=== PATIENT | male | born 1950 | race Caucasian/White ===

== ENCOUNTER → 2017-08-07 | Outpatient (CLI) | payer MEDICARE, OTHER ==
[~2017-08-07] MED LIST: ALBU.083IS IH; ALBU90OI INH; ALBU90OI61 INH; ASPI325 PO; Aspir 8181 MG PO; BECL40OI INH; CARV6.25 PO; CLOP75 PO; CRUTCH2 USE; CRUTCH4 USE; EZET10-80 PO; FISH1000 PO; FURO40 PO; HYDACE5 PO; HYDACE5325 PO; IBUP600 PO; LISHYD1012 PO; LISI20 PO; LISI5 PO; MONT10T PO; Mucinex600 MG PO; N-ACETYL-L-CYS600 MG PO; NAPR500 PO; NITR.4SL SL; OXYGEN; POTCHL10ER PO; PRED20 PO; Prednisone20 MG PO; SULTRIDS PO; Ventolin Soln3 ML INH; XARELTO20 MG PO; Zithromax250 MG PO
[2017-08-07 18:23] LABS: BASOPHILS ABSOLUTE AUTO 0.03 K/mm3 (0.00-0.23); BASOPHILS PERCENT AUTO 0 % (0-2); EOSINOPHILS ABSOLUTE AUTO 0.48 K/mm3 (0.00-0.68); EOSINOPHILS PERCENT AUTO 7 % (0-6); Hematocrit 45.2 % (37.0-53.0); Hemoglobin 15.3 g/dL (13.5-17.5); IMMATURE GRAN ABSOLUTE AUTO 0.01 K/mm3 (0.00-0.10); IMMATURE GRAN PERCENT AUTO 0 % (0-1); LYMPHOCYTES PERCENT AUTO 30 % (21-46); MONOCYTES ABSOLUTE AUTO 0.68 K/mm3 (0.16-1.47); MONOCYTES PERCENT AUTO 10 % (4-13); Mean Corpuscular HGB Conc 33.8 g/dL (31.5-36.5); Mean Corpuscular Volume 86 fL (80-100); Mean Platelet Volume 10.5 fL (9.1-12.4); NEUTROPHILS PERCENT AUTO 52 % (41-73); Platelet Count 167 K/mm3 (150-400); RDW Standard Deviation 40.9 fL (35.1-46.3); Red Blood Cell Count 5.27 M/mm3 (4.30-5.90)
== END | disposition home or self-care (01) ==
LOC: LAB 09:49
PROVIDERS: Nurse Practitioner Adult Health
DX: I10 Essential (primary) hypertension (principal); R53.83 Other fatigue
CPT/HCPCS: 85025

== ENCOUNTER → 2018-01-20 | Outpatient (CLI) | payer MEDICARE ==
[2018-01-20 18:11] LABS: BASOPHILS ABSOLUTE AUTO 0.05 K/mm3 (0.00-0.23); BASOPHILS PERCENT AUTO 1 % (0-2); EOSINOPHILS ABSOLUTE AUTO 0.25 K/mm3 (0.00-0.68); EOSINOPHILS PERCENT AUTO 5 % (0-6); Hematocrit 47.6 % (37.0-53.0); Hemoglobin 15.3 g/dL (13.5-17.5); IMMATURE GRAN ABSOLUTE AUTO 0.01 K/mm3 (0.00-0.10); IMMATURE GRAN PERCENT AUTO 0 % (0-1); LYMPHOCYTES ABSOLUTE AUTO 1.54 K/mm3 (0.84-5.20); LYMPHOCYTES PERCENT AUTO 28 % (21-46); MONOCYTES PERCENT AUTO 15 % (4-13); Mean Corpuscular HGB 28.9 pg (26.0-34.0); Mean Corpuscular HGB Conc 32.1 g/dL (31.5-36.5); Mean Corpuscular Volume 90 fL (80-100); Mean Platelet Volume 10.6 fL (9.1-12.4); NEUTROPHILS ABSOLUTE AUTO 2.87 K/mm3 (1.96-9.15); NEUTROPHILS PERCENT AUTO 52 % (41-73); Platelet Count 174 K/mm3 (150-400); RDW Coefficient Variation 13.2 % (11.7-14.2); RDW Standard Deviation 43.5 fL (35.1-46.3); White Blood Cell Count 5.52 K/mm3 (4.00-11.30)
[2018-01-20 19:10] LABS: Alanine Aminotransfer (ALT/SGP 16 U/L (12-78); Albumin, Blood 3.5 g/dL (3.4-5.0); Albumin/Globulin Ratio 1.2 (0.8-1.8); Alk Phos 85 U/L (50-136); Anion Gap 7 mmol/L (6-16); Aspartate Aminotrans (AST/SGOT 14 U/L (12-37); Bilirubin, Total 0.7 mg/dL (0.1-1.0); Blood Urea Nitrogen 10 mg/dL (8-24); Bun/Creatinine Ratio 10.6 (12.0-20.0); CO2, Blood 31 mmol/L (21-32); Chloride, Blood 103 mmol/L (98-108); Creatinine, Blood 0.95 mg/dL (0.60-1.20); Glomerular Filtration Rate >60 (60-); Glucose, Blood 110 mg/dL (70-99); Potassium, Blood 4.7 mmol/L (3.5-5.5); Sodium, Blood 141 mmol/L (136-145); Total Protein, Blood 6.5 g/dL (6.4-8.2)
[2018-01-22 10:56] LABS: Cholesterol 127 mg/dL (50-200); HDL Cholesterol 42 mg/dL (>39); LDL/HDL RATIO 1.3; Low Density Lipoprotein Chol 55 mg/dL (0-110); Triglycerides 151 mg/dL (30-160); Very Low Density Lipoprot Chol 30 mg/dL (6-32)
== END | disposition home or self-care (01) ==
LOC: LAB 10:07 → LAB SHORT 10:07
PROVIDERS: Nurse Practitioner Adult Health
DX: I10 Essential (primary) hypertension (principal); E78.5 Hyperlipidemia, unspecified
CPT/HCPCS: 80053; 80061; 85025

== ENCOUNTER → 2018-01-27 | Outpatient (CLI) | payer MEDICARE | END | disposition home or self-care (01) | LOC: LAB 17:43 → LAB SHORT 17:43 | DX: I25.10 Atherosclerotic heart disease of native coronary artery without angina pectoris (principal); I51.9 Heart disease, unspecified; J20.9 Acute bronchitis, unspecified; J44.9 Chronic obstructive pulmonary disease, unspecified | CPT/HCPCS: 83880 ==

== ENCOUNTER → 2019-03-17 | Outpatient (CLI) | payer MEDICARE ==
[~2019-03-17] MED LIST changes: +ELIQUIS5 MG PO; +ENTRESTO 24 MG1 EACH PO; +FISH OIL PO; +METO25ER PO; +POTA10T PO
[2019-03-17 19:10] LABS: Alanine Aminotransfer (ALT/SGP 13 U/L (12-78); Albumin, Blood 3.6 g/dL (3.4-5.0); Albumin/Globulin Ratio 1.2 (0.8-1.8); Alk Phos 88 U/L (50-136); Anion Gap 2 mmol/L (6-16); Aspartate Aminotrans (AST/SGOT 19 U/L (12-37); Bilirubin, Total 0.7 mg/dL (0.1-1.0); Blood Urea Nitrogen 18 mg/dL (8-24); Bun/Creatinine Ratio 15.1 (12.0-20.0); CO2, Blood 33 mmol/L (21-32); Calcium, Blood 8.7 mg/dL (8.5-10.1); Chloride, Blood 106 mmol/L (98-108); Cholesterol 135 mg/dL (50-200); Creatinine, Blood 1.19 mg/dL (0.60-1.20); Globulin, Blood 2.9 g/dL (2.2-4.0); Glomerular Filtration Rate >60 (60-); Glucose, Blood 98 mg/dL (70-99); Sodium, Blood 141 mmol/L (136-145); Total Protein, Blood 6.5 g/dL (6.4-8.2); Triglycerides 145 mg/dL (30-160); Very Low Density Lipoprot Chol 29 mg/dL (6-32)
[2019-03-17 19:11] LABS: CHOL/HDL RATIO 2.8; HDL Cholesterol 48 mg/dL (>39); LDL/HDL RATIO 1.2; Low Density Lipoprotein Chol 58 mg/dL (0-110)
== END ==
LOC: LAB 18:12 → LAB SHORT 18:12
PROVIDERS: Internal Medicine
DX: Z11.59 Encounter for screening for other viral diseases (principal); I50.22 Chronic systolic (congestive) heart failure; E78.2 Mixed hyperlipidemia
CPT/HCPCS: 80053; 80061; 83880; 86803

== ENCOUNTER 2019-05-01 06:01 | Day surgery (SDC) | payer MEDICARE ==
--- NOTE | 2019-05-01 07:07 | NUR ---
Ambulatory in Day Surgery. History, Chart, Medications and Allergies reviewed before start of procedure. Lungs clear T/O to Auscultation. Patient confirms NPO status and agrees with scheduled surgery. Pre-Op teaching done. Pt verbalizes understanding. Patient States Post-Procedure ride home has been arranged.
--- NOTE | 2019-05-01 10:40 | NUR ---
PT ALERT AND ORIENTED, C/O BEING DROWSY, BIOX IS 90% ON RA. PT STATES THAT HE HAS COPD AND USES O2 AT HOME OCCASIONALLY, PT ALSO HAS A CPAP. PT ENCOURAGED TO TAKE DEEP BREATHS. PT PLACED ON 2L NC AT THIS TIME. PT INSTRUCTED TO US HIS O2 AT HOME FOR NEXT FEW DAYS UNTIL HER HE UP AND MOVING AROUND AND FEELS THAT HE DOESN'T NEED IT. SPOKE WITH FAMILY WELL TO HELP REMIND AND ENCOURAGE PT TO DEEP BREATH AND COUGH.
--- NOTE | 2019-05-01 11:06 | NUR ---
PT TOLERATING FLUIDS AND PUDDING WELL.
--- NOTE | 2019-05-01 11:55 | NUR ---
PT REPORTS THAT HIS BLOOD PRESSURE HAS BEEN RUNNING LOW FOR PAST FEW WEEKS. PT DENIES DIZZINESS WITH POSITION CHANGES OR STANDING. PT HAS TOLERATED PO FLUIDS, DENIES SOB AND DIZZINESS. PT ENCOURAGED TO MONITOR HIS BLOOD PRESSURE AT HOME AND KEEP A RECORD FOR HIS PROVIDER. PT AND VERBLIZED UNDERSTANDING. Discharge instructions reviewed with patient. Patient verbalizes understanding. Copy given to patient to take home. Dressing to procedure site clean, dry, intact with no visible drainage, swelling, erythema or bruising noted. Discharged via wheelchair to private car for ride home.
== END 2019-05-01 11:55 | disposition home or self-care (01) ==
LOC: ORSCMMR 06:01 → ORD 07:30 → ORSCMMR 07:30
PROVIDERS: Surgery
PROC: 8E0W4CZ Robotic Assisted Procedure of Trunk Region, Percutaneous Endoscopic Approach (ICD-10-PCS; principal; 2019-05-01 07:30)
PROC: 0YU64JZ Supplement Left Inguinal Region with Synthetic Substitute, Percutaneous Endoscopic Approach (ICD-10-PCS; principal; 2019-05-01 07:30)
PROC: 0WUF0JZ Supplement Abdominal Wall with Synthetic Substitute, Open Approach (ICD-10-PCS; principal; 2019-05-01 07:30)
DX: K40.90 Unilateral inguinal hernia, without obstruction or gangrene, not specified as recurrent (principal); K43.2 Incisional hernia without obstruction or gangrene; I10 Essential (primary) hypertension; I48.91 Unspecified atrial fibrillation; Z79.01 Long term (current) use of anticoagulants; I25.2 Old myocardial infarction; J44.9 Chronic obstructive pulmonary disease, unspecified; G47.33 Obstructive sleep apnea (adult) (pediatric); Z87.891 Personal history of nicotine dependence; Z79.899 Other long term (current) drug therapy; Z79.82 Long term (current) use of aspirin
CPT/HCPCS: 49650; 49560; 49568; S2900; A9270-GY; C1781; J0690; J1100; J1885; J2250; J2405; J2704; J2710; J3010; J7120

== ENCOUNTER → 2020-05-16 | Outpatient (CLI) | payer MEDICARE, OTHER ==
[2020-05-16 19:23] LABS: Albumin, Blood 3.6 g/dL (3.4-5.0); Anion Gap 9 mmol/L (6-16); Blood Urea Nitrogen 19 mg/dL (8-24); Bun/Creatinine Ratio 18.1 (12.0-20.0); CO2, Blood 24 mmol/L (21-32); Calcium, Blood 9.1 mg/dL (8.5-10.1); Chloride, Blood 110 mmol/L (98-108); Creatinine, Blood 1.05 mg/dL (0.60-1.20); Glomerular Filtration Rate >60 (60-); Glucose, Blood 137 mg/dL (70-99); Phosphorus, Blood 3.5 mg/dL (2.5-4.9); Potassium, Blood 4.1 mmol/L (3.5-5.5); Sodium, Blood 143 mmol/L (136-145)
== END | disposition home or self-care (01) ==
LOC: LAB SHORT 16:57 → LAB 16:57
PROVIDERS: Internal Medicine
DX: I50.22 Chronic systolic (congestive) heart failure (principal)
CPT/HCPCS: 80069; 83880

== ENCOUNTER → 2020-08-08 | Outpatient (CLI) | payer MEDICARE, OTHER ==
[2020-08-08 18:26] LABS: Albumin, Blood 3.9 g/dL (3.4-5.0); Anion Gap 7 mmol/L (6-16); Blood Urea Nitrogen 29 mg/dL (8-24); Bun/Creatinine Ratio 22.5 (12.0-20.0); CO2, Blood 26 mmol/L (21-32); Calcium, Blood 9.1 mg/dL (8.5-10.1); Chloride, Blood 107 mmol/L (98-108); Creatinine, Blood 1.29 mg/dL (0.60-1.20); Glomerular Filtration Rate 59 (60-); Glucose, Blood 116 mg/dL (70-99); Phosphorus, Blood 3.1 mg/dL (2.5-4.9); Potassium, Blood 4.6 mmol/L (3.5-5.5); Sodium, Blood 140 mmol/L (136-145)
== END ==
LOC: LAB SHORT 17:10 → LAB 17:10
PROVIDERS: Internal Medicine
DX: I50.22 Chronic systolic (congestive) heart failure (principal)
CPT/HCPCS: 80069; 83880

== ENCOUNTER → 2021-04-17 | Outpatient (CLI) | payer MEDICARE ==
[2021-04-17 18:40] LABS: BASOPHILS ABSOLUTE AUTO 0.08 K/mm3 (0.00-0.23); BASOPHILS PERCENT AUTO 1 % (0-2); EOSINOPHILS ABSOLUTE AUTO 0.42 K/mm3 (0.00-0.68); EOSINOPHILS PERCENT AUTO 5 % (0-6); Hematocrit 51.5 % (37.0-53.0); Hemoglobin 17.1 g/dL (13.5-17.5); IMMATURE GRAN ABSOLUTE AUTO 0.03 K/mm3 (0.00-0.10); IMMATURE GRAN PERCENT AUTO 0 % (0-1); LYMPHOCYTES ABSOLUTE AUTO 2.72 K/mm3 (0.84-5.20); LYMPHOCYTES PERCENT AUTO 31 % (21-46); MONOCYTES ABSOLUTE AUTO 0.79 K/mm3 (0.16-1.47); MONOCYTES PERCENT AUTO 9 % (4-13); Mean Corpuscular HGB 29.4 pg (26.0-34.0); Mean Corpuscular HGB Conc 33.2 g/dL (31.5-36.5); Mean Corpuscular Volume 89 fL (80-100); Mean Platelet Volume 10.5 fL (9.1-12.4); NEUTROPHILS ABSOLUTE AUTO 4.62 K/mm3 (1.96-9.15); NEUTROPHILS PERCENT AUTO 54 % (41-73); Platelet Count 220 K/mm3 (150-400); RDW Coefficient Variation 12.4 % (11.7-14.2); RDW Standard Deviation 40.4 fL (35.1-46.3); Red Blood Cell Count 5.82 M/mm3 (4.30-5.90); White Blood Cell Count 8.66 K/mm3 (4.00-11.30)
[2021-04-17 18:49] LABS: Bun/Creatinine Ratio 22.8 (12.0-20.0); Calcium, Blood 9.6 mg/dL (8.5-10.1); Creatinine, Blood 1.23 mg/dL (0.60-1.20); Potassium, Blood 4.9 mmol/L (3.5-5.5)
[2021-04-17 18:59] LABS: Alanine Aminotransfer (ALT/SGP 16 U/L (12-78); Albumin, Blood 3.9 g/dL (3.4-5.0); Albumin/Globulin Ratio 1.1 (0.8-1.8); Alk Phos 73 U/L (50-136); Anion Gap 3 mmol/L (6-16); Aspartate Aminotrans (AST/SGOT 18 U/L (12-37); Blood Urea Nitrogen 28 mg/dL (8-24); Bun/Creatinine Ratio 22.2 (12.0-20.0); CHOL/HDL RATIO 2.7; CO2, Blood 30 mmol/L (21-32); Calcium, Blood 9.7 mg/dL (8.5-10.1); Chloride, Blood 106 mmol/L (98-108); Cholesterol 152 mg/dL (50-200); Creatinine, Blood 1.26 mg/dL (0.60-1.20); Globulin, Blood 3.4 g/dL (2.2-4.0); Glomerular Filtration Rate 56 (60-); Glucose, Blood 103 mg/dL (70-99); HDL Cholesterol 56 mg/dL (>39); LDL/HDL RATIO 0.9; Low Density Lipoprotein Chol 52 mg/dL (0-110); Sodium, Blood 139 mmol/L (136-145); Total Protein, Blood 7.3 g/dL (6.4-8.2); Triglycerides 218 mg/dL (30-160); Very Low Density Lipoprot Chol 43 mg/dL (6-32)
== END | disposition home or self-care (01) ==
LOC: LAB SHORT 08:55
PROVIDERS: Internal Medicine
DX: I50.22 Chronic systolic (congestive) heart failure (principal); E78.2 Mixed hyperlipidemia
CPT/HCPCS: 80048; 80053; 80061; 85025

== ENCOUNTER → 2022-04-16 | Outpatient (CLI) | payer MEDICARE ==
[2022-04-16 19:25] LABS: Alanine Aminotransfer (ALT/SGP 14 U/L (12-78); Albumin, Blood 3.7 g/dL (3.4-5.0); Albumin/Globulin Ratio 1.5 (0.8-1.8); Alk Phos 54 U/L (50-136); Anion Gap 5 mmol/L (6-16); Aspartate Aminotrans (AST/SGOT 17 U/L (12-37); Bilirubin, Total 0.7 mg/dL (0.1-1.0); Blood Urea Nitrogen 35 mg/dL (8-24); Bun/Creatinine Ratio 21.5 (12.0-20.0); CHOL/HDL RATIO 2.1; CO2, Blood 29 mmol/L (21-32); Calcium, Blood 9.5 mg/dL (8.5-10.1); Chloride, Blood 105 mmol/L (98-108); Cholesterol 141 mg/dL (50-200); Creatinine, Blood 1.63 mg/dL (0.60-1.20); Globulin, Blood 2.4 g/dL (2.2-4.0); Glomerular Filtration Rate 45 (60-); Glucose, Blood 96 mg/dL (70-99); HDL Cholesterol 68 mg/dL (>39); LDL/HDL RATIO 0.8; Low Density Lipoprotein Chol 52 mg/dL (0-110); Potassium, Blood 4.5 mmol/L (3.5-5.5); Sodium, Blood 139 mmol/L (136-145); Total Protein, Blood 6.1 g/dL (6.4-8.2); Triglycerides 104 mg/dL (30-160); Very Low Density Lipoprot Chol 20 mg/dL (6-32)
== END ==
LOC: LAB SHORT 16:01
PROVIDERS: Family Medicine
DX: E78.2 Mixed hyperlipidemia (principal); I50.22 Chronic systolic (congestive) heart failure
CPT/HCPCS: 80053; 80061

== ENCOUNTER → 2022-12-06 | Outpatient (CLI) | payer MEDICARE ==
[2022-12-06 13:18] LABS: Bun/Creatinine Ratio 17.3 (12.0-20.0); Calcium, Blood 8.7 mg/dL (8.5-10.1); Creatinine, Blood 1.27 mg/dL (0.60-1.20); Potassium, Blood 4.4 mmol/L (3.5-5.5)
== END | disposition home or self-care (01) ==
LOC: LAB 11:04 → LAB SHORT 11:04
PROVIDERS: Family Medicine
DX: N18.30 Chronic kidney disease, stage 3 unspecified (principal); Z79.899 Other long term (current) drug therapy
CPT/HCPCS: 36415; 80048

== ENCOUNTER → 2023-03-27 | Outpatient (CLI) | payer MEDICARE ==
[2023-03-27 17:31] LABS: BASOPHILS ABSOLUTE AUTO 0.08 K/mm3 (0.00-0.23); BASOPHILS PERCENT AUTO 1 % (0-2); EOSINOPHILS ABSOLUTE AUTO 0.23 K/mm3 (0.00-0.68); EOSINOPHILS PERCENT AUTO 3 % (0-6); Hematocrit 49.8 % (37.0-53.0); Hemoglobin 16.4 g/dL (13.5-17.5); IMMATURE GRAN ABSOLUTE AUTO 0.02 K/mm3 (0.00-0.10); IMMATURE GRAN PERCENT AUTO 0 % (0-1); LYMPHOCYTES ABSOLUTE AUTO 2.66 K/mm3 (0.84-5.20); LYMPHOCYTES PERCENT AUTO 32 % (21-46); MONOCYTES ABSOLUTE AUTO 0.68 K/mm3 (0.16-1.47); MONOCYTES PERCENT AUTO 8 % (4-13); Mean Corpuscular HGB 29.8 pg (26.0-34.0); Mean Corpuscular HGB Conc 32.9 g/dL (31.5-36.5); Mean Corpuscular Volume 91 fL (80-100); Mean Platelet Volume 11.5 fL (9.1-12.4); NEUTROPHILS ABSOLUTE AUTO 4.57 K/mm3 (1.96-9.15); NEUTROPHILS PERCENT AUTO 55 % (41-73); Platelet Count 195 K/mm3 (150-400); RDW Coefficient Variation 12.7 % (11.7-14.2); RDW Standard Deviation 42.2 fL (35.1-46.3); White Blood Cell Count 8.24 K/mm3 (4.00-11.30)
[2023-03-27 17:36] LABS: Magnesium, Blood 2.3 mg/dL (1.6-2.4)
[2023-03-27 17:49] LABS: Alanine Aminotransfer (ALT/SGP 11 U/L (12-78); Albumin, Blood 3.6 g/dL (3.4-5.0); Albumin/Globulin Ratio 1.2 (0.8-1.8); Alk Phos 73 U/L (50-136); Anion Gap 4 mmol/L (6-16); Aspartate Aminotrans (AST/SGOT 12 U/L (12-37); Bilirubin, Total 0.7 mg/dL (0.1-1.0); Blood Urea Nitrogen 15 mg/dL (8-24); Bun/Creatinine Ratio 14.7 (12.0-20.0); CHOL/HDL RATIO 3.4; CO2, Blood 29 mmol/L (21-32); Chloride, Blood 108 mmol/L (98-108); Cholesterol 172 mg/dL (50-200); Creatinine, Blood 1.02 mg/dL (0.60-1.20); Globulin, Blood 3.1 g/dL (2.2-4.0); Glomerular Filtration Rate 78 (60-); Glucose, Blood 122 mg/dL (70-99); HDL Cholesterol 51 mg/dL (>39); LDL/HDL RATIO 1.6; Low Density Lipoprotein Chol 82 mg/dL (0-110); Potassium, Blood 4.3 mmol/L (3.5-5.5); Sodium, Blood 141 mmol/L (136-145); Total Protein, Blood 6.7 g/dL (6.4-8.2); Triglycerides 196 mg/dL (30-160); Very Low Density Lipoprot Chol 39 mg/dL (6-32)
== END | disposition home or self-care (01) ==
LOC: LAB SHORT 08:41 → LAB 08:41
PROVIDERS: Nurse Practitioner Family
DX: I48.20 Chronic atrial fibrillation, unspecified (principal); E78.2 Mixed hyperlipidemia
CPT/HCPCS: 80053; 80061; 83735; 85025

== ENCOUNTER 2023-05-25 21:52 | Inpatient (IN) | payer MEDICARE ==
[~2023-05-25] VITALS: Ht 182.9 cm; Wt 94.6 kg
[~2023-05-25 21:52] MED LIST changes: +GABA300 PO; +SPIR25 PO; +ZOCOR20 MG PO
[2023-05-25 22:30] LABS: BASOPHILS ABSOLUTE AUTO 0.05 K/mm3 (0.00-0.23); BASOPHILS PERCENT AUTO 1 % (0-2); EOSINOPHILS ABSOLUTE AUTO 0.17 K/mm3 (0.00-0.68); EOSINOPHILS PERCENT AUTO 2 % (0-6); Hematocrit 47.7 % (37.0-53.0); Hemoglobin 15.7 g/dL (13.5-17.5); IMMATURE GRAN ABSOLUTE AUTO 0.01 K/mm3 (0.00-0.10); IMMATURE GRAN PERCENT AUTO 0 % (0-1); LYMPHOCYTES ABSOLUTE AUTO 3.33 K/mm3 (0.84-5.20); LYMPHOCYTES PERCENT AUTO 37 % (21-46); MONOCYTES ABSOLUTE AUTO 1.06 K/mm3 (0.16-1.47); MONOCYTES PERCENT AUTO 12 % (4-13); Mean Corpuscular HGB 29.1 pg (26.0-34.0); Mean Corpuscular HGB Conc 32.9 g/dL (31.5-36.5); Mean Corpuscular Volume 89 fL (80-100); Mean Platelet Volume 12.3 fL (9.1-12.4); NEUTROPHILS ABSOLUTE AUTO 4.36 K/mm3 (1.96-9.15); NEUTROPHILS PERCENT AUTO 49 % (41-73); Platelet Count 158 K/mm3 (150-400); RDW Coefficient Variation 13.2 % (11.7-14.2); RDW Standard Deviation 43.3 fL (35.1-46.3); Red Blood Cell Count 5.39 M/mm3 (4.30-5.90); White Blood Cell Count 8.98 K/mm3 (4.00-11.30)
[2023-05-25 22:44] LABS: Bun/Creatinine Ratio 14.1 (12.0-20.0); Creatinine, Blood 1.35 mg/dL (0.60-1.20); Magnesium, Blood 2.4 mg/dL (1.6-2.4); Potassium, Blood 4.9 mmol/L (3.5-5.5)
[2023-05-26] VITALS (33 sets, daily range): BP systolic 84–129; BP diastolic 48–103
[2023-05-26 00:05] LABS: Calcium, Ionized (POC) 1.13 mmol/L (1.10-1.46); Chloride (POC) 102 mmol/L (98-108); Creatinine (POC) 1.5 mg/dL (0.8-1.3); Glucose (ISTAT POC) 75 mg/dL (70-99); Hemoglobin (POC) 16.3 g/dL (13.5-17.5); Potassium (POC) 4.9 mmol/L (3.5-5.5); Sodium (POC) 140 mmol/L (135-148); Total CO2 (POC) 29 mmol/L (21-32)
[2023-05-26 01:33] LABS: International Normalized Ratio 1.25
[2023-05-26 03:17] LABS: BASOPHILS ABSOLUTE AUTO 0.05 K/mm3 (0.00-0.23); BASOPHILS PERCENT AUTO 1 % (0-2); EOSINOPHILS ABSOLUTE AUTO 0.14 K/mm3 (0.00-0.68); EOSINOPHILS PERCENT AUTO 2 % (0-6); Hematocrit 44.3 % (37.0-53.0); Hemoglobin 14.3 g/dL (13.5-17.5); IMMATURE GRAN ABSOLUTE AUTO 0.01 K/mm3 (0.00-0.10); IMMATURE GRAN PERCENT AUTO 0 % (0-1); LYMPHOCYTES ABSOLUTE AUTO 2.19 K/mm3 (0.84-5.20); LYMPHOCYTES PERCENT AUTO 35 % (21-46); MONOCYTES ABSOLUTE AUTO 0.64 K/mm3 (0.16-1.47); MONOCYTES PERCENT AUTO 10 % (4-13); Mean Corpuscular HGB 28.9 pg (26.0-34.0); Mean Corpuscular HGB Conc 32.3 g/dL (31.5-36.5); Mean Corpuscular Volume 90 fL (80-100); Mean Platelet Volume 10.9 fL (9.1-12.4); NEUTROPHILS ABSOLUTE AUTO 3.24 K/mm3 (1.96-9.15); NEUTROPHILS PERCENT AUTO 52 % (41-73); Platelet Count 103 K/mm3 (150-400); RDW Coefficient Variation 13.2 % (11.7-14.2); RDW Standard Deviation 43.2 fL (35.1-46.3); Red Blood Cell Count 4.95 M/mm3 (4.30-5.90); White Blood Cell Count 6.27 K/mm3 (4.00-11.30)
[2023-05-26 03:35] LABS: Magnesium, Blood 2.2 mg/dL (1.6-2.4)
[2023-05-26 03:36] LABS: Bilirubin, Total 0.8 mg/dL (0.1-1.0); Calcium, Blood 8.1 mg/dL (8.5-10.1); Creatinine, Blood 1.21 mg/dL (0.60-1.20); Potassium, Blood 4.2 mmol/L (3.5-5.5)
--- NOTE | 2023-05-26 06:37 | NUR ---
PT ADMITTED TO ROOM ICU 14 FROM ED, ARRIVING AT 0232 THIS MORNING. PT ABLE TO PIVOT TRANSFER FROM [facility] TO BED. PT IN SINUS RHYTHM. DENIES CHEST PAIN OR PRESSURE. HAS COUGH THAT HE RELATES TO POST NASAL DRIP. PT STARTED ON HEPARIN DRIP PER PHARMACY RATE. PT GOOD HISTORIAN, AND OPEN TO TEACHING OF CARDIOVERSION, CURRENT HEALTH STATUS, DID PLACE O2 PER NASAL CANNULA FOR WHEN PT SLEEPING. PT STATES HE USES OXYGEN AT HOME AT [facility]. WILL CONTINUE TO MONITOR PT, AND WILL REPORT OFF TO ONCOMING RN.
--- NOTE | 2023-05-26 10:56 | NUR ---
CARE ASSUMPTION DURING BEDSIDE SHIFT REPORT W RAVI BREWER THE PT IS SLEEPING COMFORTABLY IN BED. PT WEARING 2L NC W SPO2 >92% ON THE MONITOR. PT'S MONITOR SHOWING SR 70'S W PAC'S AND OCCASIONAL PVC. BP WNL AND STABLE. PT HAS HEPARIN GTT INFUSING AT ORDERED RATE, CONFIRMED AT BEDSIDE W ANTHONY RN.
--- NOTE | 2023-05-26 13:23 | NUR ---
UPDATE WHILE THE PT WAS SITTING RELAXED IN THE RECLINER HIS MONITOR SHOWED AFIB 130-138. PT ASYMPTOMATIC AND BP WNL. PROVIDER NOTIFIED AND NEW ORDERS PENDING. RIGHT AFTER THIS RN NOTIFIED DR. NUNEZ THE PT'S HR DROPPED BACK DOWN 80'S-90'S. DR. NUNEZ UPDATED AND PROVIDER STATING TO CONTINUE TO MONITOR THE PT BUT THAT WE WILL STILL POSSIBLY DISCHARGE HIM THIS AFTERNOON.
[2023-05-26] MEDS ORDERED: Toprol Xl50 MG PO (15:04)
--- NOTE | 2023-05-26 16:03 | NUR ---
DISCHARGE PT DISCHARGED FROM ICU 14 TO HOME APPROX 1600. PT'S VITAL SIGNS STABLE AT TIME OF DISCHARGE. PT'S SPO2 >92% ON RM AIR. PT DENYING ANY PAIN OR NAUSEA. PT'S IV'S WERE DC'D AND THE PT WAS ABLE TO GET DRESSED INDEPENDENTLY. PT GIVEN DISCHARGE INSTRUCTIONS AND DISCUSSED THEM WITH THIS RN INCLUDING HIS NEW METOPROLOL PRESCRIPTION AND THE DOCTORS ORDER TO TAKE 100MG OF HIS METOPROLOL TOMMORROW PRIOR TO HIS ANGIOGRAM. PT TAKEN OUT VIA W/C AND WAS ABLE TO TRANSFER SELF TO HIS DAUGHTERS VEHICLE UNASSISTED.
[2023-05-27] MEDS ORDERED: CLOP75 PO (15:35)
== END 2023-05-26 16:00 | disposition home or self-care (01) | DRG 309 ==
LOC: ER 21:52 → ICUE 05-26 01:29
PROVIDERS: Student in an Organized Health Care Education/Training Program; ADMIT Student in an Organized Health Care Education/Training Program
PROC: 5A2204Z Restoration of Cardiac Rhythm, Single (ICD-10-PCS; principal; 2023-05-26)
DX: I47.20 Ventricular tachycardia, unspecified (principal); I50.22 Chronic systolic (congestive) heart failure; J44.9 Chronic obstructive pulmonary disease, unspecified; I25.10 Atherosclerotic heart disease of native coronary artery without angina pectoris; I95.9 Hypotension, unspecified; I48.20 Chronic atrial fibrillation, unspecified; I49.3 Ventricular premature depolarization; I48.92 Unspecified atrial flutter; I25.2 Old myocardial infarction; Z88.8 Allergy status to other drugs, medicaments and biological substances; Z95.5 Presence of coronary angioplasty implant and graft; Z95.1 Presence of aortocoronary bypass graft; Z87.891 Personal history of nicotine dependence; Z95.0 Presence of cardiac pacemaker; Z79.82 Long term (current) use of aspirin; Z79.01 Long term (current) use of anticoagulants
CPT/HCPCS: 71045; 80047; 80048; 80053; 82947; 83735; 83880; 84484; 85014; 85025; 85610; 85730; 92960; 93005; 93010; 96360-59; 96361-59; 99285-25; A9270; G0008; J0282; J1644; J2405; J7030; Q2036

== ENCOUNTER 2023-05-27 09:12 | Day surgery (SDC) | payer MEDICARE ==
[2023-05-27] VITALS (15 sets, daily range): BP systolic 89–141; BP diastolic 72–102
[~2023-05-27] VITALS: Ht 182.9 cm; Wt 101.6 kg
[~2023-05-27 09:12] MED LIST changes: +Toprol Xl50 MG PO
--- NOTE | 2023-05-27 14:22 | NUR ---
1405 SJ RETURNED FROM THE [facility] VIA RECLINER, TR BAND TO THE RIGHT RADIAL WITH 16 ML OF AIR IN THE BAND. PATIENT PLACE ON THE MONITOR AND SBAR RECEIVED FROM DANIELLA MELENDEZ. AND IQRA RTR. PATIENT AWAKE, DRINKING COFFEE, CALL LIGHT IN REACH, NO PAIN NOTED. NO BLEEDING FROM THE RIGHT RADIAL.
--- NOTE | 2023-05-27 14:41 | NUR ---
PT AMBULATED TO RESTROOM. PT NOW BACK IN CHAIR. REPEAT V/S. FAMILY AT BEDSIDE.
--- NOTE | 2023-05-27 15:22 | NUR ---
2cc REMOVED FROM TR BAND. NO BLEEDING NOTED. SITE SOFT AND NON-TENDER PER PT.
--- NOTE | 2023-05-27 15:32 | NUR ---
CONTINUED TO RELEASE AIR FROM THE TR BAND. NO BLEEDING NOTED. FAMILY AT THE BEDSIDE.
[2023-05-27] MEDS ORDERED: CLOP75 PO (15:35)
--- NOTE | 2023-05-27 16:12 | NUR ---
[place] DISCHARGED HOME WITH FAMILY DRYING MACHINE TENDER. TR BAND REMOVED AND CLOTH DOT IN PLACE. DISCHARGE INSTRUCTIONS REVIEWED AND FOLLOW UP APPOINTMENT WILL BE CALLED TO THE PATIENT FROM THE OFFICE.
== END 2023-05-27 15:41 | disposition home or self-care (01) ==
LOC: MHTC 09:12
DX: I25.118 Atherosclerotic heart disease of native coronary artery with other forms of angina pectoris (principal); Q20.8 Other congenital malformations of cardiac chambers and connections; J44.9 Chronic obstructive pulmonary disease, unspecified; I10 Essential (primary) hypertension; E78.5 Hyperlipidemia, unspecified; G47.33 Obstructive sleep apnea (adult) (pediatric); Z95.0 Presence of cardiac pacemaker; Z95.1 Presence of aortocoronary bypass graft
CPT/HCPCS: 76937; 85347; 93455; 99152; 99153; A9270; C1725; C1769; C1874; C1887; C1894; C9600; J1644; J2250; J3010; J3246; J7030; J7050; Q9967

== ENCOUNTER 2023-08-01 06:23 | Inpatient (IN) | payer MEDICARE ==
[~2023-08-01] VITALS: Ht 182.9 cm; Wt 94.5 kg
[~2023-08-01 06:23] MED LIST changes: +ALBU2.5V5 INH; +METO50ER PO; -Toprol Xl50 MG PO
[2023-08-01 06:51] LABS: BASOPHILS ABSOLUTE AUTO 0.07 K/mm3 (0.00-0.23); BASOPHILS PERCENT AUTO 1 % (0-2); EOSINOPHILS ABSOLUTE AUTO 0.19 K/mm3 (0.00-0.68); EOSINOPHILS PERCENT AUTO 2 % (0-6); Hematocrit 45.2 % (37.0-53.0); Hemoglobin 14.9 g/dL (13.5-17.5); IMMATURE GRAN ABSOLUTE AUTO 0.02 K/mm3 (0.00-0.10); IMMATURE GRAN PERCENT AUTO 0 % (0-1); LYMPHOCYTES ABSOLUTE AUTO 2.45 K/mm3 (0.84-5.20); LYMPHOCYTES PERCENT AUTO 27 % (21-46); MONOCYTES PERCENT AUTO 8 % (4-13); Mean Corpuscular HGB 29.3 pg (26.0-34.0); Mean Corpuscular Volume 89 fL (80-100); Mean Platelet Volume 11.6 fL (9.1-12.4); NEUTROPHILS ABSOLUTE AUTO 5.71 K/mm3 (1.96-9.15); NEUTROPHILS PERCENT AUTO 62 % (41-73); Platelet Count 157 K/mm3 (150-400); RDW Coefficient Variation 13.9 % (11.7-14.2); Red Blood Cell Count 5.09 M/mm3 (4.30-5.90); White Blood Cell Count 9.14 K/mm3 (4.00-11.30)
[2023-08-01 07:23] LABS: Albumin, Blood 3.4 g/dL (3.4-5.0); Bilirubin, Total 0.6 mg/dL (0.1-1.0); Bun/Creatinine Ratio 22.8 (12.0-20.0); Calcium, Blood 9.4 mg/dL (8.5-10.1); Creatinine, Blood 1.14 mg/dL (0.60-1.20); Globulin, Blood 3.4 g/dL (2.2-4.0); Potassium, Blood 4.5 mmol/L (3.5-5.5); Total Protein, Blood 6.8 g/dL (6.4-8.2)
[2023-08-01 12:03] VITALS: BP 116/92
[2023-08-01] MEDS ORDERED: Norco 5-325 Ta1 EACH PO ×2 (12:18)
[2023-08-01 13:36] VITALS: BP 103/80
--- NOTE | 2023-08-01 15:12 | NUR ---
PT ARRIVED TO PCU AT 1109. PT ON RA AT TIME OF ARRIVAL. PT EXPRESSED CHEST PRESSURE AT TIME OF ARRIVAL. PT ABLE TO TRANSFER SELF TO AND FROM HIS BED INDEPENDENTLY, TOLERATED WELL. 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 THIS SAT AT SIDE OF BED AND THERAPEUTICALLY LISTENED. PT A/OX4 AT TIME OF ARRIVAL AND ABLE TO EXPRESS NEEDS. PT ORIENTED TO ROOM AND CALL LIGHT.
[2023-08-01 16:15] VITALS: BP 119/80
--- NOTE | 2023-08-01 17:32 | NUR ---
REPORT RECIEVED FROM ER NURSE AT 1053.
--- NOTE | 2023-08-01 17:57 | NUR ---
SHIFT SUMMARY PT A/O X4 AND COOPERATIVE OF CARE. PT ABLE TO EXPRESS NEEDS AND CALLS APPROPIATLEY. PT HR REMAINED IN AFLUTTER AT 130-140'S WITH VERY BRIEF PERIOD OF 120. PT BP'S AND SATS STABLE IN THE 90'S ON RA. PT REPORTS CHEST PRESSURE SINCE ARRIVAL TO UNIT. NITRO TABS GIVEN PER PRDER, LITTLE RELIEF. MORPHINE ORDERED ONCE, PT REPORTED SLIGHT RELIEF. LOPRESSOR AND DIGOXIN GIVEN PER ORDER, HR REMAINED 130-140'S. PT REPORTS DYSPNEA RELATED TO CHEST PRESSURE. NITRO PATCH ORDEED AND APPLIED. PT INDEPENDENT IN ROOM. PT ARRIVED TO UNIT WITH AMIO GTT RUNNING, AMIO STOPPED AT 1459 PER ORDER.
[2023-08-01 20:13] VITALS: BP 106/79
--- NOTE | 2023-08-01 21:25 | NUR ---
ASSUMPTION OF CARE THIS RN ASSUMED CARE OF PT AT APPROX 1915. DURING BEDSIDE SHIFT REPORT, PT NOTED THAT HIS CHEST PAIN/PRESSURE REMAINED MODERATE-SEVERE. DAY SHIFT RN STATED THAT NITRO ADMINISTERED EARLIER IN THE DAY WAS NOT EFFECTIVE IN REDUCING CHEST PAIN. HR REMAINS 130-150'S AT START OF SHIFT, BP STABLE. CALL PLACED TO [facility] RESIDENT REGARDING PT'S CONTINUED CHEST PAIN & AFLUTTER ON TELE THAT REPORTEDLY HAS NOT RESPONDED TO AMIO GTT OR IV LOPRESSOR PUSHES. RESIDENT PHYSICIAN TO BEDSIDE TO EVALUATE PT. ORDERS RECEIVED TO ADMINISTER MORPHINE FOR PAIN RELIEF PER EMAR & START 100MG PO METOPROLOL PER EMAR THIS PM FOR RATE CONTROL. PT REPORTS REDUCTION IN CHEST PAIN FROM 9/10 TO 4/10 FOLLOWING ADMINISTRATION OF 2MG MORPHINE. PT STATES THAT HE FEELS LIKE HE MAY BE ABLE TO SLEEP AT THIS TIME, CALL LIGHT WITHIN REACH.
[2023-08-01 23:58] VITALS: BP 96/71
[2023-08-02] VITALS (16 sets, daily range): BP systolic 81–110; BP diastolic 56–77
[2023-08-02 04:35] LABS: Bun/Creatinine Ratio 24.3 (12.0-20.0); Calcium, Blood 8.9 mg/dL (8.5-10.1); Creatinine, Blood 1.11 mg/dL (0.60-1.20); Potassium, Blood 4.2 mmol/L (3.5-5.5)
--- NOTE | 2023-08-02 04:50 | NUR ---
END OF SHIFT NOTE: PT REMAINS PLEASANT & COOPERATIVE W/ ALL CARE. ALERT, ORIENTED X4. ABLE TO CALL APPROPRIATELY AND COMMUNICATE NEEDS W/ STAFF. HR 140'S, UP TO 150'S AT TIMES, AFLUTTER ON TELE. SEE PREVIOUS NOTE REGARDING MD AT BEDSIDE. PM DIGOXIN AND METOPROLOL ADMINISTERED PER EMAR W/O HR CHANGE. NITRO PATCH REMAINS IN PLACE. IV LOPRESSOR ON HOLD D/T SBP <100 THIS AM. SBP 90-110'S, MAP >65. PT ENDORSES SEVERE CHEST PAIN/PRESSURE THAT RADIATES TO NECK AND BACK; MODERATE RELIEF W/ MORPHINE PER EMAR. SPO2 >92% ON RA, CPAP WHILE SLEEPING. PT INDEPENDENT IN ROOM, TOLERATING PO INTAKE WELL. NO OTHER NEEDS AT THIS TIME. PT IS RESTING IN BED W/ CALL LIGHT IN REACH. WILL REPORT TO ONCOMING RN.
--- NOTE | 2023-08-02 07:40 | NUR ---
PT REPORTING 9/10 CRUSHING CHEST PAIN RADIATING TO THE JAW AND RIGHT ARM, AND HE STATED HE FEELS "LIKE MY HEART IS GOING TO GIVE OUT". I GAVE HIM MORPHINE FOR PAIN AND PLACED HIM ON 2L NC FOR PAIN. HE HAS BEEN NPO SINCE 0000. DR. ODONNELL CALLED AND STATED TO HOLD THE ENTRESTO, LASIX, AND SPIRALACLONE D/T SOFT BP. HE STATED TO GIVE THE PLAVIX, ELIQUIS, AND BETA BLOCKERS. HE WILL CALL CARDIOLOGY. SEE NOTES FOR UPDATES.
--- NOTE | 2023-08-02 09:39 | NUR ---
CARDIOVERSION: Dr. Ty came to room with HC nurses. Cardioverted Pt through the Pacer/ICD. Pt tolerated well. VS improved post cardioversion. Amioderone gtt running per orders. Pt now sitting up at edge of bed eating breakfast. Stable at this time, call light in reach.
--- NOTE | 2023-08-02 13:05 | NUR ---
MORNING SUMMARY PT IS A&OX4, SBA FOR LINE MANAGEMENT, AND HE CALLS APPROPRIATELY FOR HIS NEEDS. THE PT HAD A CARDIOVERSION W/ DR. SAENZ THIS MORNING, SEE CHARGE NURSE ANTIHA'S NOTE FOR DETAILS. THE PT WAS RESTARTED ON HIS DIURETICS AND METOPROLOL 100MG POST CARDIOVERSION. HIS BP IS SOFT, BUT DR. ODONNELL SAID TO CALL HIM IF THE MAP IS <65. PT IS STILL ON AN AMIO GTT AT THIS TIME. HE NOW DENYING ANY ANIGNA/CHEST PRESSURE, LIGHT HEADEDNESS, OR DIZZINESS. HE HAS BEEN ON RA W/ SP02 >93% AND THE PT DENIES ANY SOB. SEE NOTES FOR ANY UPDATES. FIRE IGNITION RISK HAS BEEN ASSESSED.
--- NOTE | 2023-08-02 14:15 | NUR ---
ASSUMED CARE OF PT PT IN BED ALERT, DR. ODONNELL IN ROOM AT THIS TIME, NO NEW ORDERS BUT STATES PROBABLE DC HOME TOMORROW. PT DENIES ANY COMPLAINTS. HR 77 AV PACED WITH INTERM PVC'S. BP SOFT BUT ASYMPTOMATIC. CURRENTLY RUNNING AMIO 33.3ML/HR. PT IS INDEPENDENT IN ROOM, EDUCATED ON FALL PRECAUTIONS. WILL CONT' TO MONITOR FOR REMAINDER OF SHIFT.
--- NOTE | 2023-08-02 17:14 | NUR ---
SUMMARY PT WAS CARDOVERTED THIS AM USING ICD, RATE HAS BEEN STABLE IN THE 70'S. AMIO GTT INFUSING AT MAINTENANCE RATE OF 16.7ML/HR. HAS BEEN HYPOTENSIVE T/O DAY BUT HAS IMPROVED THIS EVENING. PT HAS DENIED ANY COMPLAINTS. HOPEFUL ABOUT DC HOME TOMORROW.
--- NOTE | 2023-08-02 22:19 | NUR ---
ASSUMED CARE: THIS RN ASSUMED CARE OF PT AT APPROX 1900. PT ALERT/ORIENTED X4, SITTING UP ON EDGE OF BED CONVERSING W/ STAFF. HR 70-80'S, APACED ON TELE. SBP 90'S, MAP >65. PT DENIES CHEST PAIN/PRESSURE, STATES THIS RESOLVED FOLLOWING CARDIOVERSION. SPO2 >95% ON RA, RT TO BEDSIDE THIS PM TO PLACE CPAP FOR NOC. AMIO GTT INFUSING PER EMAR. PT REMAINS INDEPENDENT IN ROOM, EDUCATED ON FALL PREVENTION. NO OTHER NEEDS AT THIS TIME. CALL LIGHT WITHIN REACH, BED IN LOWEST POSITION.
[2023-08-03 03:46] VITALS: BP 96/63
--- NOTE | 2023-08-03 05:17 | NUR ---
END OF SHIFT NOTE: PT REMAINS PLEASANT & COOPERATIVE W/ ALL CARE. ALERT, ORIENTED X4. ABLE TO CALL APPROPRIATELY AND COMMUNICATE NEEDS W/ STAFF. HR 70-80'S, APACED ON TELE. SBP 90-110'S, MAP >65. PT CONTINUES TO DENY CHEST PAIN/PRESSURE. SPO2 >88% ON RA, CPAP WHILE SLEEPING W/ 3L O2 BLEED IN. AFEBRILE. PT INDEPENDENT IN ROOM, TOLERATING PO INTAKE WELL. VOIDS INDEPENDENTLY. NO OTHER NEEDS AT THIS TIME. PT IS RESTING IN BED W/ CALL LIGHT IN REACH. WILL REPORT TO ONCOMING RN.
[2023-08-03 07:49] VITALS: BP 102/69
[2023-08-03] MEDS ORDERED: Amiodarone HCl200 MG PO ×2 (09:03)
--- NOTE | 2023-08-03 09:35 | NUR ---
UPDATE PT ALERT AND ORIENTED. VS STABLE. HR A PACED 70'S. PT DENIES ANY PAIN. ORDERS FOR DISCHARGE THIS AM. PT PROVIDED INSTRUCTIONS AND EDUCATED ON NEW MEDICATIONS. ALL QUESTIONS ANSWERED. PT TAKEN OUT BY WC
== END 2023-08-03 09:31 | disposition home or self-care (01) | DRG 309 ==
LOC: ER 06:23 → PCU 06:24 → ER 11:15 → EDBEDREQ 11:45 → PCU 12:08
PROVIDERS: Emergency Medicine; ADMIT Internal Medicine
PROC: 5A2204Z Restoration of Cardiac Rhythm, Single (ICD-10-PCS; principal; 2023-08-02)
DX: I48.0 Paroxysmal atrial fibrillation (principal); I50.22 Chronic systolic (congestive) heart failure; N17.9 Acute kidney failure, unspecified; I48.92 Unspecified atrial flutter; J44.9 Chronic obstructive pulmonary disease, unspecified; I11.0 Hypertensive heart disease with heart failure; I25.10 Atherosclerotic heart disease of native coronary artery without angina pectoris; F10.90 Alcohol use, unspecified, uncomplicated; I77.810 Thoracic aortic ectasia; I45.10 Unspecified right bundle-branch block; I34.0 Nonrheumatic mitral (valve) insufficiency; Z95.1 Presence of aortocoronary bypass graft; Z98.890 Other specified postprocedural states; Z87.891 Personal history of nicotine dependence; Z88.8 Allergy status to other drugs, medicaments and biological substances; Z79.01 Long term (current) use of anticoagulants; Z79.82 Long term (current) use of aspirin; Z79.02 Long term (current) use of antithrombotics/antiplatelets; Z95.5 Presence of coronary angioplasty implant and graft; I25.2 Old myocardial infarction; Z79.891 Long term (current) use of opiate analgesic; Z79.899 Other long term (current) drug therapy
CPT/HCPCS: 36415; 71045; 80048; 80053; 83880; 84443; 84484; 85025; 93005; 93010; 93283; 94660; 94762; 96365; 96366; 96375; 96376; 99285-25; A9270; G0378; J0282; J1160; J2270; J7060

== ENCOUNTER 2023-08-06 07:42 | Day surgery (SDC) | payer MEDICARE ==
[~2023-08-06] VITALS: Ht 182.9 cm; Wt 93.7 kg
[~2023-08-06 07:42] MED LIST changes: +Amiodarone HCl200 MG PO; +Norco 5-325 Ta1 EACH PO
[2023-08-06] MEDS ORDERED: Amiodarone HCl200 MG (08:11)
--- NOTE | 2023-08-06 08:23 | NUR ---
08/06/23 0830 Heike Seth 0809 PLEDGET AT 0811
[2023-08-06 09:13] VITALS: BP 126/80
--- NOTE | 2023-08-06 09:33 | NUR ---
08/06/23 0977 REINIER FAN WHEEZING NOTED UPPER RIGHT AND SOMEWHAT LOWER RIGHT. PT HAS COPD. STATES THAT HE DOES HAVE INHALER AT HOME WHICH HE STATES HE WILL USE. VERY PLEASANT GENTLEMAN.
== END 2023-08-06 09:27 | disposition home or self-care (01) ==
LOC: ORSCSDS 07:42
PROVIDERS: Student in an Organized Health Care Education/Training Program
PROC: 08RJ3JZ Replacement of Right Lens with Synthetic Substitute, Percutaneous Approach (ICD-10-PCS; principal; 2023-08-06 09:00)
DX: H25.13 Age-related nuclear cataract, bilateral (principal); H21.81 Floppy iris syndrome; I10 Essential (primary) hypertension; I48.0 Paroxysmal atrial fibrillation; G47.33 Obstructive sleep apnea (adult) (pediatric); J44.9 Chronic obstructive pulmonary disease, unspecified; E78.5 Hyperlipidemia, unspecified; I25.10 Atherosclerotic heart disease of native coronary artery without angina pectoris; Z87.891 Personal history of nicotine dependence; Z79.01 Long term (current) use of anticoagulants; Z79.82 Long term (current) use of aspirin; Z79.02 Long term (current) use of antithrombotics/antiplatelets; Z79.899 Other long term (current) drug therapy
CPT/HCPCS: J3010; J7040; V2632

== ENCOUNTER 2023-08-27 06:13 | Day surgery (SDC) | payer MEDICARE ==
[~2023-08-27] VITALS: Ht 182.9 cm; Wt 94.5 kg
[~2023-08-27 06:13] MED LIST changes: +Amiodarone HCl200 MG
--- NOTE | 2023-08-27 06:35 | NUR ---
08/27/23 0635 Heike Seth AT 0633 PLESOLISET AT 0647
[2023-08-27 07:55] VITALS: BP 108/76
== END 2023-08-27 08:06 | disposition home or self-care (01) ==
LOC: ORSCSDS 06:13
PROVIDERS: Student in an Organized Health Care Education/Training Program
PROC: 08RK3JZ Replacement of Left Lens with Synthetic Substitute, Percutaneous Approach (ICD-10-PCS; principal; 2023-08-27 07:30)
DX: H25.12 Age-related nuclear cataract, left eye (principal); Z96.1 Presence of intraocular lens; Z79.02 Long term (current) use of antithrombotics/antiplatelets; G47.33 Obstructive sleep apnea (adult) (pediatric); J44.9 Chronic obstructive pulmonary disease, unspecified; I25.10 Atherosclerotic heart disease of native coronary artery without angina pectoris; E78.5 Hyperlipidemia, unspecified; I10 Essential (primary) hypertension; I48.91 Unspecified atrial fibrillation; I25.5 Ischemic cardiomyopathy; I48.0 Paroxysmal atrial fibrillation; Z95.1 Presence of aortocoronary bypass graft; Z87.891 Personal history of nicotine dependence; Z79.82 Long term (current) use of aspirin; Z79.01 Long term (current) use of anticoagulants; Z79.899 Other long term (current) drug therapy
CPT/HCPCS: J2250; J3010; J7030; J7040; V2632

== ENCOUNTER 2024-02-07 08:14 | Inpatient (IN) | payer MEDICARE ==
[~2024-02-07] VITALS: Ht 182.9 cm; Wt 96.0 kg
[2024-02-07] VITALS (14 sets, daily range): BP systolic 91–127; BP diastolic 71–115
[2024-02-07] MEDS ORDERED: Magnesium Sulf 2 GM/Water 50ML 50 ML IV ONE (08:35)
[2024-02-07] MEDS ORDERED: Metoprolol Tartrate 1 MG/ML 5 ML VIAL IV ONE (08:35)
[2024-02-07] MEDS ORDERED: MethylPREDNISolone Sod Succ 125 MG Vial IV ONE (08:35)
[2024-02-07 09:00] LABS: BASOPHILS PERCENT AUTO 1 % (0-2); EOSINOPHILS ABSOLUTE AUTO 0.32 K/mm3 (0.00-0.68); EOSINOPHILS PERCENT AUTO 3 % (0-6); Hematocrit 47.8 % (37.0-53.0); Hemoglobin 15.5 g/dL (13.5-17.5); IMMATURE GRAN ABSOLUTE AUTO 0.04 K/mm3 (0.00-0.10); IMMATURE GRAN PERCENT AUTO 0 % (0-1); LYMPHOCYTES ABSOLUTE AUTO 3.36 K/mm3 (0.84-5.20); LYMPHOCYTES PERCENT AUTO 28 % (21-46); MONOCYTES PERCENT AUTO 9 % (4-13); Mean Corpuscular HGB 29.8 pg (26.0-34.0); Mean Corpuscular HGB Conc 32.4 g/dL (31.5-36.5); Mean Corpuscular Volume 92 fL (80-100); Mean Platelet Volume 11.3 fL (9.1-12.4); NEUTROPHILS PERCENT AUTO 59 % (41-73); Platelet Count 204 K/mm3 (150-400); RDW Coefficient Variation 13.6 % (11.7-14.2); RDW Standard Deviation 46.4 fL (35.1-46.3); White Blood Cell Count 11.82 K/mm3 (4.00-11.30)
[2024-02-07] MEDS ORDERED: NS 1,000 ML IV SCH (09:05)
[2024-02-07] MEDS ORDERED: Ketamine HCl 100 MG / ML 5ML Vial IV ONE (09:05)
[2024-02-07 09:19] LABS: Albumin, Blood 3.3 g/dL (3.4-5.0); Bilirubin, Total 0.6 mg/dL (0.1-1.0); Bun/Creatinine Ratio 16.5 (12.0-20.0); Calcium, Blood 8.7 mg/dL (8.5-10.1); Creatinine, Blood 2.3 mg/dL (0.60-1.20); Globulin, Blood 3.2 g/dL (2.2-4.0); Magnesium, Blood 2.7 mg/dL (1.6-2.4); Potassium, Blood 4.3 mmol/L (3.5-5.5); Total Protein, Blood 6.5 g/dL (6.4-8.2)
[2024-02-07] MEDS ORDERED: Ondansetron HCl 2 MG / ML 2ML Vial IV ONE (09:45)
[2024-02-07 09:47] LABS: Influenza A, PCR NEGATIVE (NEGATIVE); Influenza B, PCR NEGATIVE (NEGATIVE); Resp Syncytial Virus, PCR NEGATIVE (NEGATIVE); SARS-Cov-2 (COVID-19) PCR, MMC NEGATIVE (NEGATIVE)
[2024-02-07] MEDS ORDERED: Lactated Ringer's 1,000 ML IV ONE (10:55)
[2024-02-07 11:38] LABS: Base Excess Venous -2.8 mmol/L; Bicarbonate Venous 20.6 mmol/L (24.0-30.0); PCO2 Venous 52.6 mmHg (38-42); pH Blood Venous 7.27 (7.34-7.37)
[2024-02-07] MEDS ORDERED: Acetaminophen 325 MG TABLET PO PRN (11:45)
[2024-02-07 15:39] LABS: Base Excess Venous -4.9 mmol/L; PCO2 Venous 55 mmHg (38-42); pH Blood Venous 7.22 (7.34-7.37)
[2024-02-07] MEDS ORDERED: Midodrine 5 MG Tab PO SCH (18:00)
--- NOTE | 2024-02-07 18:03 | NUR ---
Summary. Pt arrived to ICU alert and oriented. Ambulatory. Pt independent in room, denies needs. Changed to PCU status, Dr. Patino in to see pt and medtronic rep for pacemaker. No acute events, see chart for details.
[2024-02-07 18:47] LABS: Base Excess Venous -2.6 mmol/L; Bicarbonate Venous 21.6 mmol/L (24.0-30.0); PCO2 Venous 45.3 mmHg (38-42); pH Blood Venous 7.32 (7.34-7.37)
--- NOTE | 2024-02-07 20:02 | NUR ---
ASSUMPTION OF CARE/ASSESSMENT: ASSUMED CARE OF PT AT 1900; BEDSIDE REPORT RECIEVED FROM ABDOUL BREWER. PT IN BED, A&O X 4, PLEASANT AND COOPERATIVE WITH CARE. PT AMBULATORY AND INDEPENDENT WITH ADL'S AT THIS TIME. VSS AT THIS TIME; PT DENIES SOB, CHEST PAIN OR DIZZINES. SR ON MONITOR, ON RA. PT TOLERATES PO INTAKE AND IS USING URINAL INDEPENDENTLY. BED LOWERED, CALL LIGHT IN REACH.
[2024-02-07] MEDS ORDERED: Metoprolol Tartrate 50 MG Tab PO SCH (21:00)
--- NOTE | 2024-02-07 22:43 | NUR ---
PT TRANSFER: PT TRANSFERRED TO PCU 19; REPORT GIVEN TO CHANTELLE BREWER TO ASSUME PRIAMRY CARE. PT LEFT THE UNIT VIA WHEELCHAIR AT 2240. ALL PT'S BELONGINGS SENT WITH PT.
--- NOTE | 2024-02-07 23:11 | NUR ---
TRANSFER NOTE THIS RN RECEIVED REPORT FROM ELTON BREWER IN THE ICU. PT TRANSFERRED TO PCU 19 AT 2240. PT A&O X4. ABLE TO MAKE NEEDS KNOWN. BP STABLE, SBP 110'S. DENIES CHEST PAIN/PRESSURE. INDEPENDENT WITH ADL'S. NONSLIP SOCKS ON. ON 4L VIA NC WITH SLEEP PER PREVIOUS RN. PT ORIENTED TO ROOM AND GIVEN CALL LIGHT. BED IN LOWEST POSITION.
[2024-02-08 03:07] VITALS: BP 115/65
[2024-02-08 03:45] LABS: BASOPHILS ABSOLUTE AUTO 0.01 K/mm3 (0.00-0.23); BASOPHILS PERCENT AUTO 0 % (0-2); EOSINOPHILS PERCENT AUTO 0 % (0-6); Hematocrit 43.4 % (37.0-53.0); Hemoglobin 14.5 g/dL (13.5-17.5); IMMATURE GRAN ABSOLUTE AUTO 0.06 K/mm3 (0.00-0.10); IMMATURE GRAN PERCENT AUTO 1 % (0-1); LYMPHOCYTES ABSOLUTE AUTO 1.33 K/mm3 (0.84-5.20); LYMPHOCYTES PERCENT AUTO 11 % (21-46); MONOCYTES ABSOLUTE AUTO 0.56 K/mm3 (0.16-1.47); MONOCYTES PERCENT AUTO 5 % (4-13); Mean Corpuscular HGB 29.8 pg (26.0-34.0); Mean Corpuscular HGB Conc 33.4 g/dL (31.5-36.5); Mean Corpuscular Volume 89 fL (80-100); Mean Platelet Volume 11.3 fL (9.1-12.4); NEUTROPHILS ABSOLUTE AUTO 9.69 K/mm3 (1.96-9.15); NEUTROPHILS PERCENT AUTO 83 % (41-73); Platelet Count 184 K/mm3 (150-400); RDW Coefficient Variation 13.1 % (11.7-14.2); RDW Standard Deviation 42.8 fL (35.1-46.3); Red Blood Cell Count 4.86 M/mm3 (4.30-5.90); White Blood Cell Count 11.65 K/mm3 (4.00-11.30)
[2024-02-08 04:17] LABS: Bun/Creatinine Ratio 25.7 (12.0-20.0); Calcium, Blood 8.3 mg/dL (8.5-10.1); Creatinine, Blood 1.44 mg/dL (0.60-1.20); Magnesium, Blood 2.6 mg/dL (1.6-2.4); Potassium, Blood 5.5 mmol/L (3.5-5.5)
--- NOTE | 2024-02-08 04:48 | NUR ---
SHIFT SUMMARY SEE PREVIOUS NOTE REGARDING TRANSFER. NO ACUTE CHANGES OVERNIGHT. MOSTLY ATRIAL PACED RHYTHM ON MONITOR, OCCASIONAL VPACED BEATS NOTED. BP STABLE. ON 4L VIA NC WHILE SLEEPING, OTHERWISE ON RA. DENIES CHEST PAIN/PRESSURE. PT UP TO BATHROOM INDEPENDENTLY. BED IN LOWEST POSITION AND CALL LIGHT WITHIN REACH. THIS RN WILL REPORT TO ONCOMING DAYSHIFT RN.
[2024-02-08 07:20] VITALS: BP 103/59
[2024-02-08] MEDS ORDERED: Clopidogrel Bisulfate 75 MG Tab PO SCH (09:00)
[2024-02-08] MEDS ORDERED: Apixaban 5 MG Tab PO SCH (09:00)
[2024-02-08] MEDS ORDERED: METO50 PO (11:51)
[2024-02-08] MEDS ORDERED: MIDO5 PO (11:51)
--- NOTE | 2024-02-08 12:35 | NUR ---
DISCHARGE HOME PT A&O X4. PT MOOD INTERMITTENTLY CALM & COOPERATIVE VS IRRITABLE & ANGRY. PT VSS. SPO2 > 92% ON RA. MONITOR SHOWING PACED RHYTHM W/ FREQUENT PVCs. MD AWARE. PT REPORTING READINESS TO DISCHARGE HOME. MD W/ ORDERS FOR DC. PT LOUDLY/AGGRESSIVELY VERBALIZING DISPLEASURE W/ OUTSIDE HOSPITAL PHARMACYS, DOCTOR CHANGES & MEDICATION CHANGES. PT LOUDLY VERBALIZING "I DON'T WANT TO HAVE TO RUN AROUND & DEAL WITH A BUNCH OF IDIOTS TODAY!" PT AT ONE POINT RAISING R ARM HIGH IN THE AIR THEN QUICKLY SWINGING IT DOWN WHILE RAISING VOICE IN RM. PT THEN APOLOGIZING, STATING "I'M SORRY, IT'S NOT YOU." THIS RN SPENT TIME LISTENING TO PT FRUSTRATIONS & PT DAUGHTER AT BEDSIDE STATING "CALM DOWN DAD." DC INSTRUCTIONS REVIEWED W/ PT & SENT HOME W/ PT. PIVs REMOVED. PT TAKEN OUT IN WHEELCHAIR @ APPROX 1215.
== END 2024-02-08 13:18 | disposition home or self-care (01) | DRG 308 ==
LOC: ER 08:14 → ICUE 12:09 → PCU 22:45
PROVIDERS: Emergency Medicine; ADMIT Family Medicine
PROC: 5A2204Z Restoration of Cardiac Rhythm, Single (ICD-10-PCS; principal; 2024-02-07)
PROC: 5A09357 Assistance with Respiratory Ventilation, Less than 24 Consecutive Hours, Continuous Positive Airway Pressure (ICD-10-PCS; 2024-02-07)
DX: I47.20 Ventricular tachycardia, unspecified (principal); J96.21 Acute and chronic respiratory failure with hypoxia; J96.22 Acute and chronic respiratory failure with hypercapnia; N17.9 Acute kidney failure, unspecified; I50.22 Chronic systolic (congestive) heart failure; I42.0 Dilated cardiomyopathy; I25.10 Atherosclerotic heart disease of native coronary artery without angina pectoris; J44.9 Chronic obstructive pulmonary disease, unspecified; I48.0 Paroxysmal atrial fibrillation; Z95.5 Presence of coronary angioplasty implant and graft; Z95.1 Presence of aortocoronary bypass graft; Z88.8 Allergy status to other drugs, medicaments and biological substances; Z79.02 Long term (current) use of antithrombotics/antiplatelets; Z79.82 Long term (current) use of aspirin; Z79.891 Long term (current) use of opiate analgesic; Z79.899 Other long term (current) drug therapy; Z79.01 Long term (current) use of anticoagulants; I25.2 Old myocardial infarction; Z95.0 Presence of cardiac pacemaker; Z98.890 Other specified postprocedural states; Z98.42 Cataract extraction status, left eye; Z98.41 Cataract extraction status, right eye; Z87.891 Personal history of nicotine dependence
CPT/HCPCS: 0241U; 36415; 71045; 76770; 80048; 80053; 82803; 83735; 83880; 84484; 85025; 92960; 93005; 93010; 94660; 94762; 96365-59; 96366-59; 96375-59; 99152; 99285-25; A9270; C8929; J2919; J3475; J7030; J7120; Q9957

== ENCOUNTER → 2024-02-13 | Outpatient (CLI) | payer MEDICARE ==
[~2024-02-13] MED LIST changes: +METO50 PO; +MIDO5 PO
[2024-02-13 19:10] LABS: BASOPHILS ABSOLUTE AUTO 0.08 K/mm3 (0.00-0.23); BASOPHILS PERCENT AUTO 1 % (0-2); EOSINOPHILS ABSOLUTE AUTO 0.45 K/mm3 (0.00-0.68); EOSINOPHILS PERCENT AUTO 6 % (0-6); Hematocrit 44.3 % (37.0-53.0); Hemoglobin 14.2 g/dL (13.5-17.5); IMMATURE GRAN ABSOLUTE AUTO 0.02 K/mm3 (0.00-0.10); IMMATURE GRAN PERCENT AUTO 0 % (0-1); LYMPHOCYTES ABSOLUTE AUTO 2.26 K/mm3 (0.84-5.20); LYMPHOCYTES PERCENT AUTO 28 % (21-46); MONOCYTES ABSOLUTE AUTO 0.75 K/mm3 (0.16-1.47); MONOCYTES PERCENT AUTO 9 % (4-13); Mean Corpuscular HGB 29.4 pg (26.0-34.0); Mean Corpuscular HGB Conc 32.1 g/dL (31.5-36.5); Mean Corpuscular Volume 92 fL (80-100); Mean Platelet Volume 11.2 fL (9.1-12.4); NEUTROPHILS ABSOLUTE AUTO 4.63 K/mm3 (1.96-9.15); NEUTROPHILS PERCENT AUTO 57 % (41-73); Platelet Count 193 K/mm3 (150-400); RDW Coefficient Variation 13.2 % (11.7-14.2); RDW Standard Deviation 44.4 fL (35.1-46.3); Red Blood Cell Count 4.83 M/mm3 (4.30-5.90); White Blood Cell Count 8.19 K/mm3 (4.00-11.30)
[2024-02-13 19:36] LABS: Bun/Creatinine Ratio 14.6 (12.0-20.0); Calcium, Blood 8.8 mg/dL (8.5-10.1); Creatinine, Blood 1.03 mg/dL (0.60-1.20); Potassium, Blood 4.3 mmol/L (3.5-5.5)
== END ==
LOC: LAB 17:17 → LAB SHORT 17:17
PROVIDERS: Nurse Practitioner Family
DX: I10 Essential (primary) hypertension (principal); R73.03 Prediabetes
CPT/HCPCS: 80048; 83036; 85025

== ENCOUNTER 2024-07-27 10:16 | Inpatient (IN) | payer MEDICARE ==
[~2024-07-27] VITALS: Ht 182.9 cm; Wt 94.4 kg
[2024-07-27 10:53] LABS: BASOPHILS ABSOLUTE AUTO 0.05 K/mm3 (0.00-0.23); BASOPHILS PERCENT AUTO 1 % (0-2); EOSINOPHILS ABSOLUTE AUTO 0.07 K/mm3 (0.00-0.68); EOSINOPHILS PERCENT AUTO 1 % (0-6); Hematocrit 42.3 % (37.0-53.0); Hemoglobin 13.5 g/dL (13.5-17.5); IMMATURE GRAN ABSOLUTE AUTO 0.01 K/mm3 (0.00-0.10); IMMATURE GRAN PERCENT AUTO 0 % (0-1); LYMPHOCYTES ABSOLUTE AUTO 0.69 K/mm3 (0.84-5.20); LYMPHOCYTES PERCENT AUTO 12 % (21-46); MONOCYTES ABSOLUTE AUTO 0.67 K/mm3 (0.16-1.47); MONOCYTES PERCENT AUTO 12 % (4-13); Mean Corpuscular HGB 27.3 pg (26.0-34.0); Mean Corpuscular HGB Conc 31.9 g/dL (31.5-36.5); Mean Corpuscular Volume 86 fL (80-100); Mean Platelet Volume 10.6 fL (9.1-12.4); NEUTROPHILS PERCENT AUTO 73 % (41-73); Platelet Count 113 K/mm3 (150-400); RDW Coefficient Variation 14.6 % (11.7-14.2); RDW Standard Deviation 45.9 fL (35.1-46.3); Red Blood Cell Count 4.95 M/mm3 (4.30-5.90); White Blood Cell Count 5.59 K/mm3 (4.00-11.30)
[2024-07-27 11:20] LABS: Albumin, Blood 3.2 g/dL (3.4-5.0); Albumin/Globulin Ratio 0.9 (0.8-1.8); Bilirubin, Total 0.5 mg/dL (0.1-1.0); Bun/Creatinine Ratio 12.4 (12.0-20.0); Calcium, Blood 8.7 mg/dL (8.5-10.1); Creatinine, Blood 1.21 mg/dL (0.60-1.20); Globulin, Blood 3.4 g/dL (2.2-4.0); Total Protein, Blood 6.6 g/dL (6.4-8.2)
[2024-07-27 11:22] LABS: CORONAVIRUS COVID-19 AG Negative (NEGATIVE); INFLUENZA A AG Positive (NEGATIVE); INFLUENZA B AG Negative (NEGATIVE)
[2024-07-27] MEDS ORDERED: ENTRESTO 24 MG1 EAC3 PO (12:01)
[2024-07-27] MEDS ORDERED: HYDROCODONE-AC1 EA19 PO (12:01)
[2024-07-27] MEDS ORDERED: KLOR-CON 1010 ME9 PO (12:01)
[2024-07-27] MEDS ORDERED: Bisoprolol Fumar5 MG PO (12:01)
[2024-07-27] MEDS ORDERED: ROSUVASTATIN CA10 MG PO (12:02)
[2024-07-27] MEDS ORDERED: FUROSEMIDE20 MG PO (12:02)
[2024-07-27] MEDS ORDERED: Amiodarone HCl200 MG PO (12:02)
[2024-07-27] MEDS ORDERED: MethylPREDNISolone Sod Succ 125 MG Vial IV ONE (13:30)
[2024-07-27] MEDS ORDERED: Ipratropium Bromide INH 0.02% 0.5 mg/2.5ML Vial INH SCH (13:30)
[2024-07-27] MEDS ORDERED: Albuterol 2.5 MG/3 ML VIAL INH SCH (13:30)
[2024-07-27] MEDS ORDERED: Azithromycin 500 MG in NS 250 ML IV ONE (14:10)
[2024-07-27] MEDS ORDERED: FLU VACC TS2024-25(6MOS UP)/PF 45 MCG/0.5 ML SYRINGE IM SCH (17:10)
[2024-07-27] MEDS ORDERED: Ondansetron HCl 2 MG / ML 2ML Vial IV PRN (17:10)
[2024-07-27] MEDS ORDERED: HYDROcodone 5-APAP 325 TAB PO PRN (17:15)
[2024-07-27] MEDS ORDERED: Albuterol 2.5 MG/3 ML VIAL INH PRN (17:35)
[2024-07-27] MEDS ORDERED: Rosuvastatin Calcium 10 MG Tab PO SCH (18:00)
[2024-07-27] MEDS ORDERED: Furosemide 10 MG / ML 2ML Vial IV SCH (18:00)
[2024-07-27] MEDS ORDERED: Amiodarone HCl 200 MG Tab PO SCH (18:00)
[2024-07-27] MEDS ORDERED: Metoprolol Succinate 50 MG TABCR PO SCH (18:00)
[2024-07-27] MEDS ORDERED: Acetaminophen 325 MG TABLET PO PRN (18:00)
[2024-07-27] MEDS ORDERED: Sacubitril/Valsartan 24 MG-26 MG Tab PO SCH (21:00)
[2024-07-27] MEDS ORDERED: Oseltamivir Phosphate 75 MG Cap PO SCH (21:00)
[2024-07-27] MEDS ORDERED: Lactobacil 2-S.Thermo-Bifido 1 1 Cap PO SCH (21:00)
[2024-07-27] MEDS ORDERED: Apixaban 5 MG Tab PO SCH ×2 (21:00)
[2024-07-27 21:01] VITALS: BP 106/72
[2024-07-27] MEDS ORDERED: NITROGLYCERIN0.4 M3 SL (21:28)
[2024-07-27] MEDS ORDERED: PROAIR DIGIHAL90 MCG INH (21:34)
--- NOTE | 2024-07-28 01:26 | NUR ---
@2039 RECEIVED SBAR OVER THE PHONE FROM DANIELLA FARNSWORTH @ED. @2053 PT ARRIVED IN A W/C TO THE MEDICAL FLOOR RM#[id number]. PT TRANSFERRED TO HOSPITAL BED INDEPENDENTLY. CHARGE NURSE DARRYL Sanchez COMPLETED THE ADMISSION ASSESSMENT. SKIN CHECK WAS COMPLETED WITH BELLA Sanchez RN AND JS Azul RN. PT DID NOT HAVE ANY BELONINGS WITH HIM, EXPECPT CLOTHING HE HAD ON. PT WAS EDUCATED SYSTEMS SPECIALIST LIGHT, NON-SLIP SOCKS WERE PROVIDED. PT IS A&O X4, ABLE TO MAKE HIS NEEDS KNOWN AND COOPERATIVE WITH CARE. PT IS ON DROPLET ISOLATION D/T DX OF INFLUENZA A. CONTINUING CARE. BED AT THE LOWEST POSITION, CALL LIGHT W/I REACH.
[2024-07-28 04:03] VITALS: BP 104/72
--- NOTE | 2024-07-28 04:19 | NUR ---
APPROXIMATELY 0400: COST MANAGER CINTHYA RODRIGUES NOTIFIED THAT PT'S HEART RHYTHM CHANGED FROM A-FIB TO VENTRICULAR RHYTHM. PRN EKG T-ORDER RECEIVED, VSS. PT ASYMPTOMATIC, DENIES SOB/PAIN/PRESSURE. CHARGE NURSE DARRYL COMPLETED THE EKG, DANIELLA THOMPSON BY THE BEDSIDE. , ON-CALL HOSPITALIST NOTIFIED, PER PHONE CONVERSTATION, CONTINUE TO MONITOR FOR NOW.
[2024-07-28 06:11] LABS: BASOPHILS ABSOLUTE AUTO 0.01 K/mm3 (0.00-0.23); BASOPHILS PERCENT AUTO 0 % (0-2); EOSINOPHILS PERCENT AUTO 0 % (0-6); Hematocrit 39.8 % (37.0-53.0); Hemoglobin 12.8 g/dL (13.5-17.5); IMMATURE GRAN ABSOLUTE AUTO 0.01 K/mm3 (0.00-0.10); IMMATURE GRAN PERCENT AUTO 0 % (0-1); LYMPHOCYTES PERCENT AUTO 10 % (21-46); MONOCYTES PERCENT AUTO 8 % (4-13); Mean Corpuscular HGB 27.3 pg (26.0-34.0); Mean Corpuscular HGB Conc 32.2 g/dL (31.5-36.5); Mean Corpuscular Volume 85 fL (80-100); Mean Platelet Volume 10.8 fL (9.1-12.4); NEUTROPHILS ABSOLUTE AUTO 3.21 K/mm3 (1.96-9.15); NEUTROPHILS PERCENT AUTO 82 % (41-73); Platelet Count 112 K/mm3 (150-400); RDW Coefficient Variation 14.6 % (11.7-14.2); RDW Standard Deviation 44.9 fL (35.1-46.3); Red Blood Cell Count 4.69 M/mm3 (4.30-5.90); White Blood Cell Count 3.93 K/mm3 (4.00-11.30)
[2024-07-28 06:38] LABS: Bilirubin, Total 0.4 mg/dL (0.1-1.0); Calcium, Blood 8.5 mg/dL (8.5-10.1); Creatinine, Blood 1.19 mg/dL (0.60-1.20); Globulin, Blood 3.1 g/dL (2.2-4.0); Total Protein, Blood 6.1 g/dL (6.4-8.2)
[2024-07-28 07:16] LABS: BAND PERCENT MAN 1 % (0-8); BASOPHILS PERCENT MAN 0 % (0-2); EOSINOPHILS PERCENT MAN 0 % (0-6); LYMPHOCYTES ABSOLUTE MAN 0.15 K/mm3 (0.84-5.20); LYMPHOCYTES PERCENT MAN 4 % (21-46); MONOCYTES ABSOLUTE MAN 0.19 K/mm3 (0.16-1.47); MONOCYTES PERCENT MAN 5 % (4-13); NEUTROPHILS ABSOLUTE MAN 3.57 K/mm3 (1.96-9.15); SEG NEUTROPHILS PERCENT MAN 90 % (41-73); TOTAL CELLS COUNTED 100
[2024-07-28] MEDS ORDERED: Metoprolol Succinate 50 MG TABCR PO ONE (07:40)
[2024-07-28 07:49] VITALS: BP 103/60
[2024-07-28] MEDS ORDERED: Metoprolol Succinate 50 MG TABCR PO SCH (09:00)
[2024-07-28] MEDS ORDERED: Enoxaparin 40 MG/0.4 ML SYR SC SCH (09:00)
[2024-07-28] MEDS ORDERED: Amiodarone HCl 200 MG Tab PO SCH (09:00)
[2024-07-28] MEDS ORDERED: Potassium Chloride 10 Meq Tablet SA PO SCH (09:00)
[2024-07-28] MEDS ORDERED: Rosuvastatin Calcium 10 MG Tab PO SCH (09:00)
[2024-07-28] MEDS ORDERED: Clopidogrel Bisulfate 75 MG Tab PO SCH (09:00)
[2024-07-28 15:38] VITALS: BP 141/78
[2024-07-28] MEDS ORDERED: Furosemide 20 MG Tab PO SCH (18:00)
--- NOTE | 2024-07-28 19:46 | NUR ---
SHIFT SUMMARY: PT IS A/O X 4, IND IN ROOM PLEASANT AND COOPERATIVE WITH CARE. PT HAD NO COMPLAINTS TODAY. TITRATED PT TO 1 LPM VIA NC TODAY. SATS 98%. PT REPORTS HE HAS HOME 02 TANK BUT RARELY USES HIS HOME OXYGEN. PT GETTING BREATHING TREATMENTS. REPORTS EFFECTIVE.
[2024-07-28 19:49] VITALS: BP 102/75
[2024-07-29 02:39] VITALS: BP 98/71
--- NOTE | 2024-07-29 06:52 | NUR ---
SHIFT SUMMARY PT SLEPT THROUGH SHIFT WITH NO COMPLICATIONS OR COMPLAINTS. APPROX 0640, PT UP AT BEDSIDE AND WALKING THROUGHOUT ROOM. CALL LIGHT WITHIN REACH. WILL RELAY TO DAY SHIFT.
[2024-07-29 07:23] VITALS: BP 93/66
[2024-07-29 08:50] LABS: BASOPHILS ABSOLUTE AUTO 0.03 K/mm3 (0.00-0.23); BASOPHILS PERCENT AUTO 0 % (0-2); EOSINOPHILS ABSOLUTE AUTO 0.04 K/mm3 (0.00-0.68); EOSINOPHILS PERCENT AUTO 1 % (0-6); Hematocrit 47.7 % (37.0-53.0); Hemoglobin 15.4 g/dL (13.5-17.5); IMMATURE GRAN ABSOLUTE AUTO 0.02 K/mm3 (0.00-0.10); IMMATURE GRAN PERCENT AUTO 0 % (0-1); LYMPHOCYTES ABSOLUTE AUTO 1.48 K/mm3 (0.84-5.20); LYMPHOCYTES PERCENT AUTO 19 % (21-46); MONOCYTES PERCENT AUTO 9 % (4-13); Mean Corpuscular HGB 27.1 pg (26.0-34.0); Mean Corpuscular HGB Conc 32.3 g/dL (31.5-36.5); Mean Corpuscular Volume 84 fL (80-100); Mean Platelet Volume 11.1 fL (9.1-12.4); NEUTROPHILS ABSOLUTE AUTO 5.35 K/mm3 (1.96-9.15); NEUTROPHILS PERCENT AUTO 70 % (41-73); Platelet Count 117 K/mm3 (150-400); RDW Coefficient Variation 14.6 % (11.7-14.2); RDW Standard Deviation 44.5 fL (35.1-46.3); Red Blood Cell Count 5.69 M/mm3 (4.30-5.90); White Blood Cell Count 7.62 K/mm3 (4.00-11.30)
[2024-07-29] MEDS ORDERED: Furosemide 20 MG Tab PO SCH (09:00)
[2024-07-29 09:06] LABS: Bun/Creatinine Ratio 25.4 (12.0-20.0); Creatinine, Blood 1.14 mg/dL (0.60-1.20); Potassium, Blood 4.1 mmol/L (3.5-5.5)
[2024-07-29] MEDS ORDERED: OSEL75CA PO (12:06)
[2024-07-29] MEDS ORDERED: Metoprolol Succinate 25 MG TABCR PO SCH (18:00)
== END 2024-07-29 12:42 | disposition home or self-care (01) | DRG 193 ==
LOC: ER 10:16 → ERHOLD 10:17 → MEDS 10:18 → ERHOLD 20:55 → MEDS 20:55 → ERHOLD 07-28 15:03 → MEDS 07-28 15:04 → ENPENDDIS 07-29 10:58 → MEDS 07-29 12:42
PROVIDERS: Student in an Organized Health Care Education/Training Program; ADMIT Internal Medicine
DX: J10.1 Influenza due to other identified influenza virus with other respiratory manifestations (principal); I50.23 Acute on chronic systolic (congestive) heart failure; J96.01 Acute respiratory failure with hypoxia; J96.02 Acute respiratory failure with hypercapnia; I48.20 Chronic atrial fibrillation, unspecified; I25.10 Atherosclerotic heart disease of native coronary artery without angina pectoris; J44.9 Chronic obstructive pulmonary disease, unspecified; Z95.1 Presence of aortocoronary bypass graft; Z95.5 Presence of coronary angioplasty implant and graft; I25.2 Old myocardial infarction; Z98.42 Cataract extraction status, left eye; Z98.41 Cataract extraction status, right eye; Z98.890 Other specified postprocedural states; Z87.891 Personal history of nicotine dependence; Z88.8 Allergy status to other drugs, medicaments and biological substances; Z79.01 Long term (current) use of anticoagulants; Z79.02 Long term (current) use of antithrombotics/antiplatelets; Z79.891 Long term (current) use of opiate analgesic; Z79.899 Other long term (current) drug therapy; Z95.810 Presence of automatic (implantable) cardiac defibrillator
CPT/HCPCS: 36415; 71046; 80048; 80053; 83690; 83880; 84484; 85025; 87428-QW; 93005; 93010; 93283; 94640; 94645; 94760; 94761; 96365; 96366; 96375; 96376; 99285-25; A9270; G0378; J0456; J1940; J2919; J7050